=== PATIENT | male | born 1940 | race Caucasian/White ===

== ENCOUNTER 2016-06-21 16:18 | Observation (INO) | payer BC ==
--- NOTE | ~2016-06-21 | CN ---
Consultation Report [facility] [address] [facility] [place]. [address] NAME: DARIO WORKMAN : 39 STATUS : ADM Liset PAT#: [id number] AGE: 75 ADM/REG DATE : 06/21/16 MR#: [id number] REPORT SERV DATE: 06/23/16 DICTATED BY: ABDI FERNANDEZ DATE: 06/23/16 REPORT STATUS : Draft TRANSCRIBED BY: MODL DATE: 06/23/16 ELECTROPHYSIOLOGY CONSULTATION DATE OF CONSULTATION: INDICATION: Paroxysmal atrial fibrillation. HISTORY OF PRESENT ILLNESS: Dario Workman is a 75-year-old man, followed in the office by Dr. Vineet Altman. He was last seen in the office on 12/06/2015. He has a background of abdominal aortic aneurysm with previous stent graft by Dr. Washburn, hypertension, COPD, hyperlipidemia, iron-deficiency anemia, former smoker, and prostatic hypertrophy. He has history of normal LV systolic function by echo in 2012. The patient presented to the hospital on 06/21/2016 with two days of intermittent shortness of breath as well as some mild dizziness. He also had chest pain for two days. He describes a sensation of weight on his chest. Those symptoms waxed and waned. The episodic shortness of breath and dizziness appeared to occur at separate times from the sensation of chest discomfort. Chest discomfort rated as approximately 2/10, it was 0 at the time of the evaluation by the CAR RENTAL SALES ASSISTANT and 0 at the time that I see the patient. No clear provoking or palliating factors. Troponin is negative x2. The patient admitted to the Chest Pain Unit. ECG demonstrated atrial fibrillation with RVR with heart rate up to 140 beats per minute and mild nonspecific ST changes. PAST MEDICAL HISTORY: As described above. HOME MEDICATIONS: Albuterol, vitamin C, aspirin, Lotensin, vitamin D, vitamin B, Aricept, iron, Proscar, Advair, vitamin B6, Crestor, and Flomax. ALLERGIES: WASP VENOM. SOCIAL HISTORY: Former smoker. FAMILY HISTORY: Reviewed and notable for coronary disease. REVIEW OF SYSTEMS: As per the HPI. Otherwise, all other review of systems is negative. PHYSICAL EXAMINATION: VITAL SIGNS: Blood pressure of 133/70, pulse is 70, respiratory rate is 18. GENERAL: Appears stated age, no distress. EYES: Sclerae anicteric, no arcus senilis. MOUTH: Oral mucosa moist, lips acyanotic. Consultation Report [facility] [address] [place]. [address] NAME: DARIO WORKMAN : 39 STATUS : ADM Liset PAT#: [id number] AGE: 75 ADM/REG DATE : 06/21/16 MR#: [id number] REPORT SERV DATE: 06/23/16 DICTATED BY: ABDI FERNANDEZ DATE: 06/23/16 REPORT STATUS : Draft TRANSCRIBED BY: AGUSTÍN DATE: 06/23/16 NECK: Jugular venous pressure normal, no carotid bruits. LUNGS: The patient has mild expiratory wheezes. CARDIAC: Regular rate and rhythm, no murmurs, gallops or rubs. ABDOMEN: Soft, nondistended, nontender. EXTREMITIES: No edema. SKIN: Warm and dry. NEURO/PSYCH: Alert and oriented, nonfocal, mood appropriate. IMAGING: Electrocardiogram from this morning is sinus rhythm with a leftward axis. No acute ischemia. The patient reverted back to sinus rhythm at 04:00 p.m. yesterday. DATA: Sodium is 139, potassium is 3.9. Troponin negative x3. BNP 81. TSH 1.3. Hemoglobin is 13.7, creatinine 1.08. IMPRESSION: 1. Paroxysmal atrial fibrillation, now in sinus rhythm. 2. Chest pain without documented coronary artery disease, but the patient does have peripheral vascular disease and cardiac risk factors. 3. Hypertension. 4. Hyperlipidemia. 5. Occasional ventricular ectopy noted on telemetry. The patient is asymptomatic. 6. Abdominal aortic aneurysm, status post endovascular repair. 7. Chronic obstructive pulmonary disease with former smoker. The patient does have slight wheezing on exam. RECOMMENDATIONS: I agree with oral anticoagulation, discontinuation of aspirin. Low-dose calcium channel erick would be reasonable. If the patient were to have recurrent episodes of symptomatic atrial fibrillation and his symptoms appear to be intermittent shortness of breath based on telemetry findings here, we would consider antiarrhythmic. Otherwise, MPI scheduled for today. Anticipate discharge to home if the MPI negative. Available as needed. MICKEY/AGUSTÍN Abdi Fernandez M.D. / [id number] CC: Anne Pro, MSN, JUVENILE COURT JUDGE-BC Ghanshyam Perkins CAR RENTAL SALES ASSISTANT
--- NOTE | ~2016-06-21 | HP ---
History And Physical [id number] [place]. [address] NAME: DARIO HUMPHREY : 39 STATUS : ADM Liset PAT#: [id number] AGE: 75 ADM/REG DATE : 06/21/16 MR#: [id number] REPORT SERV DATE: 06/22/16 DICTATED BY: DORIS HUNT DATE: 06/22/16 REPORT STATUS : Draft TRANSCRIBED BY: MODDebby DATE: 06/22/16 DATE OF ADMISSION: 06/21/2016 WOOD EXPERIMENTAL MECHANIC: Vineet Altman M.D. CHIEF COMPLAINT: Shortness of breath and dizziness. HISTORY OF PRESENT ILLNESS: A pleasant 75-year-old white gentleman with no known history of CAD or previous atrial fibrillation events, states that he has experienced two to seven days of episodic shortness of breath with occasional dizziness. He states that on June 21 in the morning, he experienced similar symptoms. He was unaware of any palpitations at that time. He describes some episodes of chest pain over the past two days as if a "weight on me all the time." He describes associated shortness of breath, dizziness, and belching. Denies any nausea or diaphoresis. His chest pain at its most intense was rated a 2/10. At the time of interview in the [facility], he was pain-free. The patient denies any personal history of myocardial infarction, stroke, DVT, or pulmonary embolus. The patient denies any recent fever or chills. He has been seemingly unaware of palpitations. No syncopal episodes. Denies PND or orthopnea. Of note, around 0530 hours this morning, the patient went into atrial fibrillation with RVR, but overnight provider was called. He was started on a Cardizem drip. This may very well have been the cause of his symptoms of dyspnea and possibly mild chest pain. He has TASHIA- VASc score of 2 for age and hypertension. PAST MEDICAL HISTORY: 1. Abdominal aortic aneurysm repair with stent graft on 01/[address] Edwards. 2. Hypertension. 3. Dyslipidemia. 4. Denies diabetes. 5. Former tobacco abuse. 6. COPD. 7. BPH. 8. History of SHANTA. 9. Positive family history for early CAD. PAST SURGICAL HISTORY: 1. AAA repair in 2008. 2. Multiple oral implants. 3. Appendectomy and tonsillectomy. SOCIAL HISTORY: He is with two children. 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 He does not have a structured exercise routine. Quit smoking in 2010, prior to that, was 1-1/2 packs per day for 40 years. Rarely consumes alcohol. Denies illicits. FAMILY HISTORY: Father of a pulmonary embolus in 62 following a surgery, mother at [facility] [address] [address] NAME: DARIO HUMPHREY : 39 STATUS : ADM Liset PAT#: [id number] AGE: 75 ADM/REG DATE : 06/21/16 MR#: [id number] REPORT SERV DATE: 06/22/16 DICTATED BY: DORIS HUNT DATE: 06/22/16 REPORT STATUS : Draft TRANSCRIBED BY: AGUSTÍN DATE: 06/22/16 74, brother of a stroke at the age of 65. REVIEW OF SYSTEMS: A fourteen-point review of systems performed, significant for HPI including consumes at times two pots of coffee per day. Otherwise, complete review of systems obtained and negative. ALLERGIES: WASP STING, SHORT OF BREATH. HOME MEDICATIONS: Albuterol p.r.n., vitamin C 500 mg daily, aspirin 162 mg daily, benazepril/HCTZ 10/12.5 daily, vitamin D 2000 units daily, vitamin B12 1000 mcg daily, Aricept 10 mg daily, iron 325 daily, Proscar 5 mg daily, Advair Diskus 250/50 twice daily, vitamin B6 25 mg daily, Crestor 10 mg daily, and Flomax 0.4 mg daily. PHYSICAL EXAMINATION: VITAL SIGNS: Blood pressure 105/62, pulse 91, irregularly irregular, respiratory rate 16, temperature 97.7, O2 saturation 98% on room air. Height 6 feet 5 inches, weight 240 pounds. BMI 28.5. GENERAL: Cooperative, in no apparent distress. HEENT: Pupils 2 mm, sclera nonicteric. Nares patent. Moist mucous membranes. No xanthelasma. NECK: Trachea midline, no thyromegaly. No JVD. No bruits. LYMPH: No cervical lymphadenopathy. No supraclavicular lymphadenopathy. RESPIRATORY: Unlabored respirations. Breath sounds clear bilaterally to posterior auscultation. No wheezes or rhonchi. CARDIOVASCULAR: Distant heart tones. Irregularly irregular rate with a variable S1, S2. No murmur, rub, or gallop appreciated. Normal carotids. EXTREMITIES: Without edema. Pulses 2+ bilaterally. ABDOMEN: Soft, nontender, nondistended, normal bowel sounds auscultated throughout. No organomegaly. SKIN: Warm, dry extremities. No pallor, or cyanosis. PSYCHIATRIC: Appropriate affect. Alert, oriented x3. LABORATORY DATA: Troponin less than 0.02 x3. Potassium 3.9, BUN 21, creatinine 1.08, glucose 130, magnesium 2.1. BNP 81.8. WBC 12.5, hemoglobin 13.7, hematocrit 40.7, and platelet count 391,000. EKG, atrial fibrillation with RVR, nonspecific ST-T waves (previously sinus rhythm). MPI in 07/2012: No ischemia. ASSESSMENT AND PLAN: 1. New-onset atrial fibrillation with rapid ventricular response, most likely cause of dyspnea on exertion and mild chest pain. The patient has been placed on a Cardizem drip. We will begin Eliquis 5 mg twice daily. If does not, revert to sinus rhythm on his own. We will keep n.p.o. after midnight for transesophageal echocardiographic cardioversion on June 23. I have discussed plan of care with Dr. Jones, who History And Physical [address] [address] NAME: DARIO HUMHPREY : 39 STATUS : ADM Liset PAT#: [id number] AGE: 75 ADM/REG DATE : 06/21/16 MR#: [id number] REPORT SERV DATE: 06/22/16 DICTATED BY: DORIS HUNT DATE: 06/22/16 REPORT STATUS : Draft TRANSCRIBED BY: MODDebby DATE: 06/22/16 would recommend beginning Cardizem p.o. at discharge with close Cardiology followup with Dr. Altman and outpatient stress test prior to Cardiology followup, as well as the patient converts to sinus rhythm. Outpatient echocardiogram prior to Cardiology followup. CHADS-VASC score of 2 for age and hypertension requiring, novel oral anticoagulant at discharge. 2. Chest pain secondary to atrial fibrillation. Outpatient myocardial perfusion imaging prior to Cardiology followup. 3. Hypertension. Monitor blood pressure. Continue home medications. 4. Dyslipidemia. Continue statin. CANDIDO/MODL MANUEL Ryan, SPECIFICATIONS WRITER-BC / [id number] CC: MANUEL Ryan, SPECIFICATIONS WRITER-BC Ghanshyam Perkins NP
[2016-06-21 15:19] LABS: BASOPHILS 0.3 %; BASOPHILS ABSOLUTE 0.04 10/3/uL (0.0-0.16); EOSINOPHILS ABSOLUTE 0.13 10/3/uL (0.0-0.53); ER CBC TAT 0 Hrs 05 Mins; HEMATOCRIT 40.7 % (40.0-51.0); HEMOGLOBIN 13.7 g/dL (13.6-17.8); IMMATURE GRANULOCYTES 0.6 %; IMMATURE GRANULOCYTES ABSOLUTE 0.07 10/3/uL (0.0-0.11); LYMPHOCYTES 11.2 %; MEAN CORPUS HGB CONC 33.7 g/dL (32.0-36.0); MEAN CORPUSCULAR HEMOGLOB 31.4 pg (26.0-34.0); MEAN CORPUSCULAR VOLUME 93.1 fL (80-100); MONOCYTES ABSOLUTE 1.38 10/3/uL (0.21-1.20); NEUTROPHILS 75.9 %; RBC DISTRIBUTION WIDTH 13.4 % (12.0-16.0); RED CELL COUNT 4.37 10/6/uL (4.7-6.1); WHITE BLOOD CELLS 12.5 10/3/uL (4.5-10.5)
[2016-06-21 15:21] LABS: MANUAL DIFF NO %; PLATELET COUNT 391 10/3/uL (150-400)
[2016-06-21 15:26] LABS: INTERNATIONAL NORMAL RATI 1.1 UNITS (-)
[2016-06-21 15:27] LABS: PARTIAL THROMBO TIME 29.2 SEC (22.5-37.2)
[2016-06-21 15:38] LABS: BUN (BLOOD UREA NITROGEN) 21 MG/DL (6-23); CALCIUM, SERUM 8.1 MG/DL (8.5-10.4); CHEST PAIN PROFILE TAT 0 Hrs 24 Mins; CHLORIDE, SERUM 104 MMOL/L (96-112); CO2 (CARBON DIOXIDE) 24 MMOL/L (24-34); CREATININE 1.08 MG/DL (0.70-1.30); GFR AFRICAN AMERICAN 77 ML/MIN (>=60); GFR NON AFRICAN AMERICAN 66 ML/MIN (>=60); GLUCOSE, SERUM 130 MG/DL (60-99); POTASSIUM, SERUM 3.9 MMOL/L (3.5-5.3); SODIUM, SERUM 139 MMOL/L (135-148); TROPONIN I <0.02 NG/ML (<0.05)
[~2016-06-21 16:18] MED LIST: ADVAIR250 INH; ASA5GR PO; FLOMAX4 PO; LOTENSIN HCT1 TA1 PO; LOTENSIN HCT1 TAB PO; PRAVACHOL80 MG PO; VITAMIN C100 MG PO; VITAMIN C1000 MG PO
[2016-06-21] MEDS ORDERED: CRESTOR10 PO (18:51)
[2016-06-21] MEDS ORDERED: ASA5GR PO (18:51)
[2016-06-21] MEDS ORDERED: FLOMAX4 PO (18:51)
[2016-06-21] MEDS ORDERED: FERROUS SULF325 M1 PO (18:51)
[2016-06-21] MEDS ORDERED: LOTENSIN HCT1 TA1 PO (18:51)
[2016-06-21] MEDS ORDERED: VITAMIN B-625 MG PO (18:52)
[2016-06-21] MEDS ORDERED: ADVAIR250 INH (18:52)
[2016-06-21] MEDS ORDERED: CYANO1000T PO (18:52)
[2016-06-21] MEDS ORDERED: ARICEPT10 PO (18:54)
[2016-06-21] MEDS ORDERED: VITAMIN D2000 UNIT PO (18:54)
[2016-06-21] MEDS ORDERED: PROAIR HFA INH (18:54)
[2016-06-21] MEDS ORDERED: PROSCAR5 PO (18:54)
[2016-06-21] MEDS ORDERED: VITC500 PO (18:54)
[2016-06-22 09:23] LABS: TROPONIN I <0.02 NG/ML (<0.05)
[2016-06-22 13:34] LABS: FREE T4 1.31 NG/DL (0.76-1.46)
[2016-06-23] MEDS ORDERED: ELIQUIS 5 MG TAB5 MG PO (14:31)
[2016-06-23] MEDS ORDERED: CARDCD120 PO (14:32)
== END 2016-06-23 15:40 | disposition home or self-care (01) ==
LOC: ER 16:18 → CDU1 18:28 → CDU2 19:14
PROVIDERS: Clinical Nurse Specialist; Hospitalist
DX: I48.0 Paroxysmal atrial fibrillation (principal); I10 Essential (primary) hypertension; E78.5 Hyperlipidemia, unspecified; E78.00 Pure hypercholesterolemia, unspecified; J44.9 Chronic obstructive pulmonary disease, unspecified; N40.0 Benign prostatic hyperplasia without lower urinary tract symptoms; Z82.49 Family history of ischemic heart disease and other diseases of the circulatory system; Z87.891 Personal history of nicotine dependence; Z90.89 Acquired absence of other organs; Z90.49 Acquired absence of other specified parts of digestive tract; Z98.890 Other specified postprocedural states; Z82.3 Family history of stroke; Z88.8 Allergy status to other drugs, medicaments and biological substances; Z79.82 Long term (current) use of aspirin; Z79.52 Long term (current) use of systemic steroids; Z79.899 Other long term (current) drug therapy; Z53.9 Procedure and treatment not carried out, unspecified reason
CPT/HCPCS: 71020; 78452; 80048; 81001; 83735; 83880; 84439; 84443; 84484; 85025; 85610; 85730; 93005; 93017; 94640; 96374; 96376; 99285; A9270-GY; A9502; G0378

== ENCOUNTER 2016-06-30 08:20 | Inpatient (IN) | payer BC ==
--- NOTE | ~2016-06-30 | DS ---
Discharge Summary [facility] [address] [place]. [address] NAME: DARIO HUMPHREY : 39 STATUS : DIS IN PAT#: [id number] AGE: 75 ADM/REG DATE : 06/30/16 MR#: [id number] REPORT SERV DATE: 07/11/16 DICTATED BY: JULIO C RAYMOND DATE: 07/11/16 REPORT STATUS : Draft TRANSCRIBED BY: MODDebby DATE: 07/11/16 Data Collection from hospitalization DISCHARGE DIAGNOSES: 1. Pericardial effusion. 2. Aortic aneurysm. 3. Hypertension. 4. Paroxysmal atrial fibrillation. 5. Iron deficiency anemia. 6. Dyslipidemia. 7. Former smoker. 8. Chronic obstructive pulmonary disease. 9. Benign prostatic hypertrophy. CONSULTATIONS: Troy Russell M.D. PROCEDURES PERFORMED: 1. Subxiphoid pericardial window on 07/02/2016. 2. CTA of the chest on 07/01/2016. PATHOLOGY: Pericardial fluid for cytology (ThinPrep, direct smears, cell block) - benign mesothelial and mononuclear cells, noninflammatory. Pericardial tissues - benign fibromembranous tissue, mesothelial hyperplasia and prominent reactive changes, and fibrinous material. MEDICATIONS: ProAir two puffs via inhaler as needed, Eliquis 5 mg twice a day, vitamin C 500 mg daily, Lipitor 20 mg at bedtime, Lotensin one tablet twice a day, vitamin D 2000 units daily, vitamin B12 1000 mcg daily, Cardizem CD 120 mg daily, Aricept 10 mg daily, ferrous sulfate 325 mg daily, Proscar 5 mg daily, Advair Diskus one puff via inhaler twice a day, Myra 5/325 one tablet every six hours as needed, vitamin B6 25 mg daily, and Flomax 0.4 mg daily. CONDITION AT DISCHARGE: Stable. DISPOSITION: The patient was discharged home on a low-sodium, low-cholesterol, cardiac diet with activities as instructed. He would follow up Dr. Troy Russell on 07/23/[address] Vineet Altman two to three weeks following discharge. HOSPITAL COURSE: This is a 75-year-old man who has a history of COPD and former tobacco use; aortic aneurysm, status post stent graft repair; as well as hypertension; hyperlipidemia; and iron deficiency anemia. He presented to [facility] for an elective outpatient echocardiogram after recent observation stay for chest pain. His echocardiogram demonstrated a borhhfil-to-ffqig size circumferential pericardial effusion with early findings of pericardial tamponade. In particular, he had transient early diastolic right ventricular free wall inversions as well as borderline exaggerated tricuspid inflow variation. In light of these findings as well as recent symptoms of worsening exertional dyspnea and chest heaviness, there was concern that he had a high likelihood of progressing into jorgito tamponade. It was recommended that he undergo drainage of this pericardial Discharge Summary [address] [address] NAME: DARIO HUMPHREY : 39 STATUS : DIS IN PAT#: [id number] AGE: 75 ADM/REG DATE : 06/30/16 MR#: [id number] REPORT SERV DATE: 07/11/16 DICTATED BY: JULIO C RAYMOND DATE: 07/11/16 REPORT STATUS : Draft TRANSCRIBED BY: AGUSTÍN DATE: 07/11/16 effusion for both diagnostic and therapeutic purposes. He said he had ongoing dyspnea that was not quite resolved since he was at the hospital and ruled out for myocardial infarction. Otherwise, he had no specific complaints. He had limited his day-to-day function, so as not feel too short of breath with daily activities. He was admitted to the hospital at this time for further evaluation and treatment. Upon admission, anticoagulation was held. He was seen by Dr. Troy Russell regarding large pericardial effusion. Approximately, a week previously, he had presented to [facility] with new-onset atrial fibrillation with rapid ventricular rate. He had converted spontaneously, but was started on Eliquis and ultimately discharged from the hospital. He presented for outpatient echocardiogram, which showed large pericardial effusion with signs of pre-tamponade. He reviewed the echocardiogram and agreed that this was a moderate-to- large size circumferential pericardial effusion. Treatment options were discussed and it was elected to proceed with surgical intervention. Eliquis had been stopped. The following day, a CTA of the chest was performed. Plans were being made to proceed with surgical intervention. He was in atrial fibrillation. He received Cardizem and went back into a sinus rhythm. Eliquis was on hold. On 07/02/2016, he was taken to the operating room by Dr. Russell where he underwent the above-mentioned procedure. 270 mL of serosanguineous fluid was removed. He tolerated this well, and there were no complications. On postop day #1, his lungs were clear. He had no focal deficits. White blood cell count was 14.6. He seemed to be doing well. Lan drain remained in place. Blood pressure was controlled. Eliquis would be resumed once it was okay with Cardiothoracic Surgery. Lan drain was removed. On 07/05/2016, he felt well. He was in a sinus rhythm. He has had no issues overnight. Discharge instructions were given. Due to his improved and stable condition, he was discharged home with the above-stated instructions. Information collected by: Marissa Shepherd I submit the above information as my discharge summary. TG/MODL Julio C Raymond MD / [id number] CC: MD Ghanshyam Gonzalez NP Clifton Coleman Reade, M.D.
--- NOTE | ~2016-06-30 | CN ---
Consultation Report [facility] [address] [place]. [address] NAME: DARIO HUMPHREY : 39 STATUS : ADM Liset PAT#: [id number] AGE: 75 ADM/REG DATE : 06/30/16 MR#: [id number] REPORT SERV DATE: 07/02/16 DICTATED BY: TROY BLOUNT DATE: 07/01/16 REPORT STATUS : Draft TRANSCRIBED BY: MODL DATE: 07/01/16 CONSULTATION NOTE DATE OF CONSULTATION: 06/30/2016 REASON FOR CONSULTATION: Large pericardial effusion. HISTORY: The patient is a 75-year-old male who approximately a week prior presented to [facility] with new onset atrial fibrillation with rapid ventricular rate. He converted spontaneously, but was started on Eliquis and ultimately discharged from the hospital. He presented for outpatient echocardiogram today, which shows a large pericardial effusion with signs of pre tamponade. He was, therefore, admitted to the hospital with a consultation for possible cardiac intervention. PAST MEDICAL HISTORY: Abdominal aortic aneurysm repair with a stent graft [place] [address] Washburn, hypertension, and dyslipidemia. Denies diabetes. Former tobacco abuse, COPD, benign prostatic hypertrophy. PAST SURGICAL HISTORY: Aortic aneurysm repair, multiple oral implants, appendectomy and tonsillectomy. SOCIAL HISTORY: He is with two children. Quit smoking in 2010, he was a one and a half pack per day smoker for 40 years prior to that. Rarely consumes alcohol. FAMILY HISTORY: His father of a pulmonary embolus. His brother of a stroke at age 65. REVIEW OF SYSTEMS: Shortness of breath, otherwise, negative. ALLERGIES: WASPS. HOME MEDICATIONS: Include albuterol, vitamin C, aspirin, benazepril/hydrochlorothiazide, vitamin D, vitamin B12. Aricept, iron, Proscar, Advair, Crestor, Flomax, and Eliquis. PHYSICAL EXAMINATION: VITAL SIGNS: He is afebrile. Vital signs are all stable. HEENT: Normocephalic and atraumatic. No scleral icterus. NECK: Supple with no thyromegaly. CHEST: Clear bilaterally. HEART: Has distant heart sounds, but regular rate and rhythm. ABDOMEN: Soft, nontender, and nondistended. EXTREMITIES: Warm with 1+ distal pulses. No clubbing, cyanosis, or edema. MUSCULOSKELETAL: Grossly intact. NEUROLOGIC: Grossly intact. Consultation Report [facility] [address] [place]. [address] NAME: DARIO HUMPHREY : 39 STATUS : ADM Liset PAT#: [id number] AGE: 75 ADM/REG DATE : 06/30/16 MR#: [id number] REPORT SERV DATE: 07/02/16 DICTATED BY: TROY BLOUNT DATE: 07/01/16 REPORT STATUS : Draft TRANSCRIBED BY: MODL DATE: 07/01/16 STUDIES: I reviewed his echocardiogram and agree with a gmzymdab-if-snxnr sized circumferential pericardial effusion. IMPRESSION: Large pericardial effusion. PLAN: We will take him to the operating room on 07/02/2016 two days after consultation to allow Eliquis to wean itself from the system. We will perform a pericardial window. The patient understands the risks, benefits, alternatives of surgery and agrees to proceed with surgery. CCR/AGUSTÍN Troy Blount M.D. / [id number] CC: MD Ghanshyam Gonzalez NP [facility]
--- NOTE | ~2016-06-30 | OP ---
Record Of Operation [facility] [address] [place]. [address] NAME: DARIO HUMPHREY : 39 STATUS : ADM Liset PAT#: [id number] AGE: 75 ADM/REG DATE : 06/30/16 MR#: [id number] REPORT SERV DATE: 07/03/16 DICTATED BY: TROY BLOUNT DATE: 07/02/16 REPORT STATUS : Draft TRANSCRIBED BY: MODL DATE: 07/02/16 DATE OF PROCEDURE: 07/02/2016 PREOPERATIVE DIAGNOSIS: Pericardial effusion. POSTOPERATIVE DIAGNOSIS: Pericardial effusion. PROCEDURE: Subxiphoid pericardial window. SURGEON: Troy Blount M.D. PIER HAND: Bg Mondragon. ANESTHESIA: Caceres. FINDINGS: Approximately 275 mL of serosanguineous fluid. SPECIMENS: Fluid for cytology and microbiology. Pericardium for pathology. DRAINS: #19 Lan x1. COMPLICATIONS: None. CONDITION: Stable to PACU. HISTORY: The patient is a 75-year-old male, who was started on Eliquis approximately one week prior for new onset atrial fibrillation. He re-presented for echocardiogram, which showed a large pericardial effusion with pre-tamponade findings. He was therefore brought to the operating room two days later after his Eliquis was held. DESCRIPTION OF PROCEDURE: After informed consent was obtained from the patient, he was brought to the operating room, laid in supine position and general anesthesia was induced. A transesophageal echocardiogram was performed, which showed circumferential pericardial effusion. The patient was prepped and draped in normal fashion. Vertical incision was made over the xiphoid process and dissection carried down to the xiphoid. The xiphoid was excised sharply. After retraction on the inferior portion of the sternum, dissection was carried down and the pericardium was entered using Bovie electrocautery. There was a quick nicolas of serosanguineous fluid that was captured for specimen. Scissors were then used to resect approximately 1 cm pericardial section for pathologic review. After all the fluid was removed, a #19 Lan was placed into the pericardial sac and brought out through a remote incision. The fascia, subcutaneous, and subcuticular tissue were closed with running Vicryl and Monocryl sutures. Overall, the patient tolerated procedure well was transported to PACU in stable condition. Record Of Operation [facility] [address] [place]. [address] NAME: DARIO HUMPHREY : 39 STATUS : ADM Liset PAT#: [id number] AGE: 75 ADM/REG DATE : 06/30/16 MR#: [id number] REPORT SERV DATE: 07/03/16 DICTATED BY: TROY BLOUNT DATE: 07/02/16 REPORT STATUS : Draft TRANSCRIBED BY: MODL DATE: 07/02/16 CCR/GEOVANYL Troy Blount M.D. / [id number] CC: Julio C Rausch MD [facility]
--- NOTE | ~2016-06-30 | HP ---
History And Physical [address] [facility] [place]. [address] NAME: DARIO WORKMAN : 39 STATUS : ADM Liset PAT#: [id number] AGE: 75 ADM/REG DATE : 06/30/16 MR#: [id number] REPORT SERV DATE: 06/30/16 DICTATED BY: JULIO C RAYMOND DATE: 06/30/16 REPORT STATUS : Draft TRANSCRIBED BY: AGUSTÍN DATE: 06/30/16 DATE OF ADMISSION: 06/30/2016 REASON FOR ADMISSION: Significant pericardial effusion. PRIMARY CARGO VESSEL STEWARDESS: Vineet Altman M.D. HISTORY OF PRESENT ILLNESS: Mr. Workman is a pleasant 75-year-old gentleman with a history of COPD, former tobacco smoking; aortic aneurysm, status post stent graft repair (2009, with Dr. Washburn); hypertension; hyperlipidemia; and iron-deficiency anemia who presented to [facility] for an elective outpatient echocardiogram after recent observation stay for chest pain rule out. His echocardiogram demonstrated a dncfutxz-ia-jdbas sized circumferential pericardial effusion with early findings of pericardial tamponade. In particular, he has transient early diastolic RV free wall inversion as well as borderline exaggerated tricuspid inflow variation. In light of these findings as well as recent symptoms of worsening exertional dyspnea and chest heaviness, I am concerned that he has high likelihood of progressing into jorgito tamponade. Accordingly, I have recommended that he be admitted for drainage of his pericardial effusion for both diagnostic and therapeutic purposes. In speaking with him, he endorses ongoing dyspnea that has not quite resolved since he was at the hospital and ruled out for myocardial infarction. He, otherwise has no other specific complaints. He has limited his day-to-day function, so as not to feel too short of breath with his daily activities. PAST MEDICAL HISTORY: As above. FAMILY HISTORY: Noncontributory for premature cardiovascular disease. SOCIAL HISTORY: The patient is a former tobacco smoker. Denies drug use or alcohol. Lives at home with his and functions independently under normal circumstances. HOME MEDICATIONS: Include, 1. Albuterol. 2. Eliquis 5 p.o. b.i.d. 3. Vitamin C. 4. Lotensin. 5. Vitamin D. 6. Cardizem. 7. Aricept. DICTATION ENDS HERE TIM/AGUSTÍN Julio C History And Physical [address] [place]. [address] NAME: DARIO WORKMAN : 39 STATUS : ADM Liset PAT#: [id number] AGE: 75 ADM/REG DATE : 06/30/16 MR#: [id number] REPORT SERV DATE: 06/30/16 DICTATED BY: JULIO C RAYMOND DATE: 06/30/16 REPORT STATUS : Draft TRANSCRIBED BY: MODL DATE: 06/30/16 MD Shalom / [id number] CC: MD Ghanshyam Gonzalez NP
--- NOTE | ~2016-06-30 | HP ---
History And Physical [address] [address] NAME: DARIO WORKMAN : 38 STATUS : ADM Liset PAT#: [id number] AGE: 75 ADM/REG DATE : 06/30/16 MR#: [id number] REPORT SERV DATE: 06/30/16 DICTATED BY: JULIO C RAYMOND DATE: 06/30/16 REPORT STATUS : Draft TRANSCRIBED BY: MODL DATE: 06/30/16 DATE OF ADMISSION: 06/30/2016 PRIMARY COMMUNICATION PROFESSOR: Vineet Altman M.D. REASON FOR ADMISSION: Pericardial effusion, hemodynamically significant. HISTORY OF PRESENT ILLNESS: Mr. Workman is a 75-year-old man with hypertension, hyperlipidemia, obesity, COPD, and aortic aneurysm, status post repair, who presented to [facility] for elective outpatient echocardiogram today, found to have a significant pericardial effusion with findings of early tamponade. In speaking with him, he has symptoms of ongoing dyspnea both at rest and worsened with exertion. PAST MEDICAL HISTORY: As above. SOCIAL HISTORY: Denies drinking alcohol or actively smoking or doing drugs. Lives at home with his . Functions independently. FAMILY HISTORY: Noncontributory. ALLERGIES: NONE. MEDICATIONS: 1. Flomax. 2. Crestor. 3. Vitamin B6. 4. Advair. 5. Proscar. 6. Iron. 7. Aricept. 8. Cardizem. 9. Vitamin B12. 10.Vitamin D. 11.Lotensin. 12.Vitamin C. 13.Eliquis. 14.ProAir. PHYSICAL EXAMINATION: VITAL SIGNS: Blood pressure 114/76 and pulse 70. GENERAL: Obese, no acute distress. Well developed, well nourished. NEUROLOGIC: Awake, alert and oriented x3; no focal deficits, appropriate mood. HEENT: Moist mucous membranes, anicteric sclerae, no nasal discharge. NECK: No JVD, no carotid bruit. LUNGS: Diminished breath sounds throughout. Mildly increased work of breathing at rest. Increased dyspnea with speaking. Otherwise, clear to auscultation bilaterally. History And Physical [address] [address] NAME: DARIO WORKMAN : 38 STATUS : ADM Liset PAT#: [id number] AGE: 75 ADM/REG DATE : 06/30/16 MR#: [id number] REPORT SERV DATE: 06/30/16 DICTATED BY: JULIO C RAYMOND DATE: 06/30/16 REPORT STATUS : Draft TRANSCRIBED BY: AGUSTÍN DATE: 06/30/16 CARDIAC: Distant heart sounds. Normal S1, S2. ABD: Soft, non-tender, non-distended, no rebound or guarding. EXTREMITIES: Cool, dry, 1+ peripheral pulses throughout. SKIN: Warm, dry and intact; no rash. PERTINENT TEST FINDINGS: Echocardiogram with normal biventricular function, moderate-to- large size circumferential pericardial effusion with signs of early tamponade. IMPRESSION AND PLAN: A 75-year-old man with: 1. Borderline hemodynamically significant pericardial effusion, unclear etiology. 2. Hypertension. 3. History of aortic aneurysm, status post repair (2009), now measuring 4.5 cm on echocardiogram. Hold anticoagulation. Questionable indication for Eliquis. The patient is unsure. Consult CT surgery for evaluation of a pericardial window. Send the pericardial fluid for study/cytology and continue other cardiovascular medications as well as medicines for hypertension, hyperlipidemia, and chronic obstructive pulmonary disease, all of which are stable presently. TIM/AGUSTÍN Julio C Raymond MD / [id number] CC: MD Ghanshyam Gonzalez NP
[~2016-06-30 08:20] MED LIST changes: +ARICEPT10 PO; +CARDCD120 PO; +CRESTOR10 PO; +CYANO1000T PO; +ELIQUIS 5 MG TAB5 MG PO; +FERROUS SULF325 M1 PO; +PROAIR HFA INH; +PROSCAR5 PO; +VITAMIN B-625 MG PO; +VITAMIN D2000 UNIT PO; +VITC500 PO
[2016-06-30 16:00] LABS: BASOPHILS 0.5 %; BASOPHILS ABSOLUTE 0.05 10/3/uL (0.0-0.16); EOSINOPHILS 1.3 %; EOSINOPHILS ABSOLUTE 0.13 10/3/uL (0.0-0.53); HEMATOCRIT 38.5 % (40.0-51.0); HEMOGLOBIN 12.9 g/dL (13.6-17.8); IMMATURE GRANULOCYTES 0.7 %; IMMATURE GRANULOCYTES ABSOLUTE 0.07 10/3/uL (0.0-0.11); LYMPHOCYTES 19.5 %; LYMPHOCYTES ABSOLUTE 1.92 10/3/uL (0.67-4.30); MANUAL DIFF NO %; MEAN CORPUS HGB CONC 33.5 g/dL (32.0-36.0); MEAN CORPUSCULAR HEMOGLOB 31.3 pg (26.0-34.0); MEAN CORPUSCULAR VOLUME 93.4 fL (80-100); MEAN PLATELET VOLUME 8.7 fL (9.2-13.0); MONOCYTES 11.8 %; MONOCYTES ABSOLUTE 1.16 10/3/uL (0.21-1.20); NEUTROPHILS 66.2 %; NEUTROPHILS ABSOLUTE 6.54 10/3/uL (2.02-8.40); PLATELET COUNT 466 10/3/uL (150-400); RBC DISTRIBUTION WIDTH 13.4 % (12.0-16.0); RED CELL COUNT 4.12 10/6/uL (4.7-6.1); WHITE BLOOD CELLS 9.9 10/3/uL (4.5-10.5)
[2016-06-30 16:04] LABS: INTERNATIONAL NORMAL RATI 1.5 UNITS (-); PROTIME (NOT ORD) 18.1 SEC (12.0-14.5)
[2016-06-30 16:07] LABS: CALCIUM, SERUM 8.5 MG/DL (8.5-10.4); CHLORIDE, SERUM 104 MMOL/L (96-112); CO2 (CARBON DIOXIDE) 26 MMOL/L (24-34); CREATININE 0.93 MG/DL (0.70-1.30); GFR AFRICAN AMERICAN 92 ML/MIN (>=60); GFR NON AFRICAN AMERICAN 79 ML/MIN (>=60); GLUCOSE, SERUM 104 MG/DL (60-99); POTASSIUM, SERUM 3.5 MMOL/L (3.5-5.3); SODIUM, SERUM 138 MMOL/L (135-148)
[2016-06-30 16:09] LABS: BUN (BLOOD UREA NITROGEN) 17 MG/DL (6-23)
[2016-06-30 21:11] LABS: ASCORBIC ACID (UR NOT ORDER) NEG (NEG); BILIRUBIN, URINE NEGATIVE (NEG); KETONE, URINE NEGATIVE (NEG); LEUKOCYTE ESTERASE(NOT OR LARGE (NEG); WBC (NOT ORDERED) (RFLEX) 54 (0-5)
[2016-07-01 04:57] LABS: BASOPHILS 0.4 %; BASOPHILS ABSOLUTE 0.04 10/3/uL (0.0-0.16); EOSINOPHILS 1.3 %; EOSINOPHILS ABSOLUTE 0.13 10/3/uL (0.0-0.53); HEMATOCRIT 35.2 % (40.0-51.0); HEMOGLOBIN 11.8 g/dL (13.6-17.8); IMMATURE GRANULOCYTES 0.5 %; IMMATURE GRANULOCYTES ABSOLUTE 0.05 10/3/uL (0.0-0.11); LYMPHOCYTES 18.9 %; LYMPHOCYTES ABSOLUTE 1.87 10/3/uL (0.67-4.30); MEAN CORPUS HGB CONC 33.5 g/dL (32.0-36.0); MEAN CORPUSCULAR HEMOGLOB 30.9 pg (26.0-34.0); MEAN CORPUSCULAR VOLUME 92.1 fL (80-100); MEAN PLATELET VOLUME 8.8 fL (9.2-13.0); MONOCYTES 13.1 %; NEUTROPHILS 65.8 %; NEUTROPHILS ABSOLUTE 6.52 10/3/uL (2.02-8.40); PLATELET COUNT 463 10/3/uL (150-400); RBC DISTRIBUTION WIDTH 13.2 % (12.0-16.0); RED CELL COUNT 3.82 10/6/uL (4.7-6.1); WHITE BLOOD CELLS 9.9 10/3/uL (4.5-10.5)
[2016-07-01 04:58] LABS: MANUAL DIFF NO %
[2016-07-01 05:23] LABS: BUN (BLOOD UREA NITROGEN) 17 MG/DL (6-23); CALCIUM, SERUM 8.2 MG/DL (8.5-10.4); CHLORIDE, SERUM 106 MMOL/L (96-112); CO2 (CARBON DIOXIDE) 24 MMOL/L (24-34); CREATININE 0.94 MG/DL (0.70-1.30); GFR AFRICAN AMERICAN 91 ML/MIN (>=60); GFR NON AFRICAN AMERICAN 78 ML/MIN (>=60); GLUCOSE, SERUM 113 MG/DL (60-99); POTASSIUM, SERUM 3.8 MMOL/L (3.5-5.3); SODIUM, SERUM 140 MMOL/L (135-148)
[2016-07-02 06:43] LABS: BASOPHILS 0.3 %; BASOPHILS ABSOLUTE 0.03 10/3/uL (0.0-0.16); EOSINOPHILS 1.9 %; EOSINOPHILS ABSOLUTE 0.18 10/3/uL (0.0-0.53); HEMATOCRIT 36.7 % (40.0-51.0); IMMATURE GRANULOCYTES 0.6 %; IMMATURE GRANULOCYTES ABSOLUTE 0.06 10/3/uL (0.0-0.11); LYMPHOCYTES 13.9 %; LYMPHOCYTES ABSOLUTE 1.28 10/3/uL (0.67-4.30); MEAN CORPUS HGB CONC 32.7 g/dL (32.0-36.0); MEAN CORPUSCULAR HEMOGLOB 30.3 pg (26.0-34.0); MEAN CORPUSCULAR VOLUME 92.7 fL (80-100); MEAN PLATELET VOLUME 8.5 fL (9.2-13.0); MONOCYTES 12.6 %; MONOCYTES ABSOLUTE 1.16 10/3/uL (0.21-1.20); NEUTROPHILS 70.7 %; NEUTROPHILS ABSOLUTE 6.53 10/3/uL (2.02-8.40); PLATELET COUNT 454 10/3/uL (150-400); RBC DISTRIBUTION WIDTH 13.3 % (12.0-16.0); RED CELL COUNT 3.96 10/6/uL (4.7-6.1); WHITE BLOOD CELLS 9.2 10/3/uL (4.5-10.5)
[2016-07-02 06:44] LABS: MANUAL DIFF NO %
[2016-07-02 06:53] LABS: BUN (BLOOD UREA NITROGEN) 18 MG/DL (6-23); CALCIUM, SERUM 8.4 MG/DL (8.5-10.4); CHLORIDE, SERUM 106 MMOL/L (96-112); CO2 (CARBON DIOXIDE) 26 MMOL/L (24-34); CREATININE 0.89 MG/DL (0.70-1.30); GFR AFRICAN AMERICAN 96 ML/MIN (>=60); GFR NON AFRICAN AMERICAN 83 ML/MIN (>=60); GLUCOSE, SERUM 119 MG/DL (60-99); POTASSIUM, SERUM 3.8 MMOL/L (3.5-5.3); SODIUM, SERUM 142 MMOL/L (135-148)
[2016-07-02 06:59] LABS: INTERNATIONAL NORMAL RATI 1.2 UNITS (-); PARTIAL THROMBO TIME 32.6 SEC (22.5-37.2)
[2016-07-03 05:20] LABS: CALCIUM, SERUM 8.4 MG/DL (8.5-10.4); CHLORIDE, SERUM 104 MMOL/L (96-112); CO2 (CARBON DIOXIDE) 28 MMOL/L (24-34); CREATININE 0.97 MG/DL (0.70-1.30); GFR AFRICAN AMERICAN 88 ML/MIN (>=60); GFR NON AFRICAN AMERICAN 76 ML/MIN (>=60); SODIUM, SERUM 140 MMOL/L (135-148)
[2016-07-03 05:23] LABS: BUN (BLOOD UREA NITROGEN) 22 MG/DL (6-23); GLUCOSE, SERUM 165 MG/DL (60-99); POTASSIUM, SERUM 4.6 MMOL/L (3.5-5.3)
[2016-07-03 05:31] LABS: BASOPHILS 0.1 %; BASOPHILS ABSOLUTE 0.01 10/3/uL (0.0-0.16); EOSINOPHILS 0 %; HEMATOCRIT 38.4 % (40.0-51.0); HEMOGLOBIN 12.6 g/dL (13.6-17.8); IMMATURE GRANULOCYTES 0.5 %; IMMATURE GRANULOCYTES ABSOLUTE 0.07 10/3/uL (0.0-0.11); LYMPHOCYTES 6.9 %; MEAN CORPUS HGB CONC 32.8 g/dL (32.0-36.0); MEAN CORPUSCULAR HEMOGLOB 30.9 pg (26.0-34.0); MEAN CORPUSCULAR VOLUME 94.1 fL (80-100); MEAN PLATELET VOLUME 8.6 fL (9.2-13.0); MONOCYTES 7.2 %; MONOCYTES ABSOLUTE 1.05 10/3/uL (0.21-1.20); NEUTROPHILS 85.3 %; NEUTROPHILS ABSOLUTE 12.43 10/3/uL (2.02-8.40); PLATELET COUNT 515 10/3/uL (150-400); RBC DISTRIBUTION WIDTH 13.1 % (12.0-16.0); RED CELL COUNT 4.08 10/6/uL (4.7-6.1)
[2016-07-03 05:32] LABS: MANUAL DIFF NO %; WHITE BLOOD CELLS 14.6 10/3/uL (4.5-10.5)
[2016-07-05] MEDS ORDERED: LIPITOR20 PO (12:13)
[2016-07-05] MEDS ORDERED: NORCO1 TA1 PO (12:15)
== END 2016-07-05 13:25 | disposition home or self-care (01) | DRG 272 ==
LOC: ECHO 08:20 → SDC/OF 13:49 → 7NO 14:08 → SDC/OF 07-02 11:16 → 5NO 07-02 17:57
PROVIDERS: Student in an Organized Health Care Education/Training Program; Thoracic Surgery (Cardiothoracic Vascular Surgery)
PROC: 0W9D0ZZ Drainage of Pericardial Cavity, Open Approach (ICD-10-PCS; principal; 2016-07-02 12:45)
DX: I31.3 Pericardial effusion (noninflammatory) (principal); I31.4 Cardiac tamponade; J44.9 Chronic obstructive pulmonary disease, unspecified; I10 Essential (primary) hypertension; E78.5 Hyperlipidemia, unspecified; E66.9 Obesity, unspecified; Z87.891 Personal history of nicotine dependence; Z79.82 Long term (current) use of aspirin
CPT/HCPCS: 36415; 71020; 71275; 80048; 81001; 84443; 85025; 85610; 85730; 86850; 86900; 86901; 86920; 87070; 87077; 87086; 87186; 87205; 88112; 88305; 93005; 93306; 93312; 93320; 93325; 94640; A9270-GY; J0690; J2250; J2370; J2405; J2710; J3010; Q9967